=== PATIENT | male | born 1970 | race American Indian/Alaskan Native ===

== ENCOUNTER 2017-10-08 07:43 | Emergency (ER) | payer SELFPAY ==
[2017-10-08 07:51] VITALS: BP 145/86
[2017-10-08] MEDS ORDERED: FLEXERIL PO ONE (08:03)
[2017-10-08] MEDS ORDERED: TORADOL IM ONE (08:03)
--- NOTE | 2017-10-08 08:05 | Emergency Department Report ---
ED Fall HPI - General Chief Complaint: Fall Stated Complaint: FALL Time Seen by Provider: 10/08/17 07:57 Source: patient Mode of arrival: Ambulatory - History of Present Illness -: Sudden When Fall Occurred: other (Wednesday IN [facility]) Loss of Consciousness: none Prolonged Down Time?: no Symptoms Prior to Fall: none Location: back, other (BACK) Location - Extremities: Right: Shoulder Severity: mild Context: tripped/slipped Associated Symptoms: denies. denies: headache, neck pain, numbness, weakness, chest paint, shortness of breath, abdominal pain, hematuria, unable to walk, lightheaded, vertigo, confusion, other - Related Data Previous Rx's Medication Instructions Recorded Last Taken Type Cyclobenzaprine [Flexeril] 10 mg PO TID PRN #10 tablet 10/08/17 Unknown Rx methylPREDNISolone [Medrol] 4 mg PO DAILY #1 tab.ds.pk 10/08/17 Unknown Rx traMADol [Ultram] 50 mg PO Q6HR PRN #12 tablet 10/08/17 Unknown Rx Allergies Allergy/AdvReac Type Severity Reaction Status Date / Time No Known Allergies Allergy Verified 07/19/14 03:01 ED Review of Systems ROS: Stated complaint: FALL Other details as noted in HPI Comment: All other systems reviewed and negative Musculoskeletal: back pain, other (R SHOULDER) ED Past Medical Hx - Past Medical History Hx Hypertension: Yes Hx Heart Attack/AMI: No Hx Congestive Heart Failure: No Hx Diabetes: No Hx Deep Vein Thrombosis: No Hx Pulmonary Embolism: No Hx GERD: No Hx Liver Disease: Yes Hx Renal Disease: No Hx Sickle Cell Disease: No Hx Arthritis: No Hx Headaches / Migraines: No Hx Seizures: No Hx Kidney Stones: No Hx Asthma: No Hx COPD: No Hx Tuberculosis: No Hx Dementia: No Hx HIV: No Additional medical history: PNEUMONIA, Pancreatitis - Surgical History Hx Coronary Stent: No Hx Open Heart Surgery: No Hx Pacemaker: No Hx Internal Defibrillator: No Hx Cholecystectomy: No Hx Appendectomy: No Hx Breast Surgery: No - Social History Smoking Status: Never Smoker Substance Use Type: Alcohol - Medications Home Medications: Home Medications Medication Instructions Recorded Confirmed Last Taken Type Cyclobenzaprine [Flexeril] 10 mg PO TID PRN #10 tablet 10/08/17 Unknown Rx methylPREDNISolone [Medrol] 4 mg PO DAILY #1 tab.ds.pk 10/08/17 Unknown Rx traMADol [Ultram] 50 mg PO Q6HR PRN #12 tablet 10/08/17 Unknown Rx ED Physical Exam - General Limitations: No Limitations General appearance: alert - Head Head exam: Present: atraumatic - Eye Eye exam: Present: PERRL - ENT ENT exam: Present: mucous membranes moist - Neck Neck exam: Present: normal inspection - Respiratory Respiratory exam: Present: normal lung sounds bilaterally - Cardiovascular Cardiovascular Exam: Present: regular rate - GI/Abdominal GI/Abdominal exam: Present: soft - Rectal Rectal exam: Present: deferred - Extremities Exam Extremities exam: Present: normal inspection, full ROM, normal capillary refill. Absent: tenderness, pedal edema, joint swelling, calf tenderness - Back Exam Back exam: Present: normal inspection, full ROM, muscle spasm (R TRAP). Absent : tenderness, CVA tenderness (R), CVA tenderness (L), paraspinal tenderness, vertebral tenderness - Neurological Exam Neurological exam: Present: alert, oriented X3 - Psychiatric Psychiatric exam: Present: normal affect, normal mood - Skin Skin exam: Present: warm, dry, intact ED Course Vital Signs 10/08/17 07:46 Temperature 98.8 F Pulse Rate 84 Respiratory 16 Rate Blood Pressure 145/86 O2 Sat by Pulse 99 Oximetry - Reevaluation(s) Reevaluation #1: 10/08/17 09:50 MEDICATED XRAY REPORTS DEC PAIN P MEDS AMBULATORY IN ER N/V INTACT NO FOCAL NEURO DEF ED Medical Decision Making - Radiology Data Radiology results: report reviewed, image reviewed - Medical Decision Making SEE NOTE - Differential Diagnosis SP FALL RO BONE INJURY Critical care attestation.: If time is entered above; I have spent that time in minutes in the direct care of this critically ill patient, excluding procedure time. ED Disposition Clinical Impression: Fall, Back strain, Shoulder strain Disposition: DC-01 TO HOME OR SELFCARE Is pt being admited?: No Does the pt Need Aspirin: No Condition: Stable Instructions: Muscle Strain (ED) Additional Instructions: REST HEAT COMPRESSES MEDS ORDERED FOLLOW UP ORTHO IF PERSISTS Prescriptions: Cyclobenzaprine [Flexeril] 10 mg PO TID PRN #10 tablet PRN Reason: Muscle Spasm methylPREDNISolone [Medrol] 4 mg PO DAILY #1 tab.ds.pk traMADol [Ultram] 50 mg PO Q6HR PRN #12 tablet PRN Reason: Pain Referrals: PRIMARY CARE, [Primary Care Provider] - 3-5 Days CITLALY CHANDRA MD [Staff Physician] - 3-5 Days Time of Disposition: 09:51
--- NOTE | 2017-10-08 10:43 | XRay Report ---
Lumbar spine: Trauma, pain. AP and lateral views compared to comparable exam in June 2013. On the current exam there is significant narrowing of the L3-4 and L4-5 interspaces. Anterior spurring is present involving us. Margin of L4. Mild subchondral erosions are noted at the L4-5 and L5-S1 interspaces. Vertebral height and alignment are maintained and the bones are well-mineralized. The current findings at L3-L5 have markedly worsened compared to prior study. Impressions: Interval progression of degenerative L3-4 and L4-5 changes. No acute findings appreciated.
== END 2017-10-08 10:30 | disposition home or self-care (01) ==
LOC: ED 07:43
DX: S46.911A Strain of unspecified muscle, fascia and tendon at shoulder and upper arm level, right arm, initial encounter (principal); S39.012A Strain of muscle, fascia and tendon of lower back, initial encounter; I10 Essential (primary) hypertension; W01.0XXA Fall on same level from slipping, tripping and stumbling without subsequent striking against object, initial encounter; Y93.89 Activity, other specified; Y92.89 Other specified places as the place of occurrence of the external cause; Y99.8 Other external cause status
CPT/HCPCS: 72100; 96372; 99283; J1885

== ENCOUNTER 2017-10-12 16:47 | Emergency (ER) | payer SELFPAY ==
[2017-10-12 16:53] VITALS: BP 155/92
[2017-10-12] MEDS ORDERED: PERCOCET 5/325 PO ONE (20:21)
[2017-10-12] MEDS ORDERED: TORADOL IM ONE (20:21)
--- NOTE | 2017-10-12 20:39 | Emergency Department Report ---
ED Back Pain/Injury HPI - General Chief Complaint: Back Pain/Injury Stated Complaint: BACK/NECK PAIN Time Seen by Provider: 10/12/17 20:05 Source: patient Limitations: No Limitations - History of Present Illness Initial Comments: 47-year-old male with a past medical history hypertension presents to hospital with continued back pain status post slip and fall 1 week ago. Patient states he slipped and fell landing straight on his back. He was seen and evaluated here October 08 and had negative lumbar spine x-rays for acute fracture. Positive DJD was seen. Patient was prescribed Flexeril, Medrol Dosepak, and tramadol for pain but states that medications are not helping. Patient continues to have bilateral lower back pain radiates moderate to severe in intensity, described as aching, constant, worse with palpation and movement. He also has pain to the left sternocleidomastoid muscle. Patient denies paresthesias, numbness, weakness, difficulty and bleeding, or urinary incontinence. Patient expresses concern that he has a slipped disc. He has a follow-up appointment scheduled in 2 weeks. - Related Data Previous Rx's Medication Instructions Recorded Last Taken Type Cyclobenzaprine [Flexeril] 10 mg PO TID PRN #10 tablet 10/08/17 Unknown Rx methylPREDNISolone [Medrol] 4 mg PO DAILY #1 tab.ds.pk 10/08/17 Unknown Rx traMADol [Ultram] 50 mg PO Q6HR PRN #12 tablet 10/08/17 Unknown Rx HYDROcodone/APAP 5-325 [[place] 1 each PO Q6HR PRN #20 tablet 10/12/17 Unknown Rx 5/325] Ibuprofen [Motrin] 800 mg PO Q8HR PRN #30 tablet 10/12/17 Unknown Rx Allergies Allergy/AdvReac Type Severity Reaction Status Date / Time No Known Allergies Allergy Verified 10/12/17 16:49 ED Review of Systems ROS: Stated complaint: BACK/NECK PAIN Other details as noted in HPI Comment: All other systems reviewed and negative Other: Constitutional: No fevers chills Eyes: No eye pain visual changes ENT: No ear pain or throat pain Neck: as per HPI Respiratory: Denies cough wheezing shortness of breath Cardiovascular: Denies chest pain, palpitations, syncope : Denies dysuria Musculoskeletal: as per hpi Skin: Denies rash, lesions, erythema Neurologic: Denies headache, numbness, weakness Psychiatric: Denies suicidal ideation, hallucinations ED Past Medical Hx - Past Medical History Hx Hypertension: Yes Hx Heart Attack/AMI: No Hx Congestive Heart Failure: No Hx Diabetes: No Hx Deep Vein Thrombosis: No Hx Pulmonary Embolism: No Hx GERD: No Hx Liver Disease: Yes Hx Renal Disease: No Hx Sickle Cell Disease: No Hx Arthritis: No Hx Headaches / Migraines: No Hx Seizures: No Hx Kidney Stones: No Hx Asthma: No Hx COPD: No Hx Tuberculosis: No Hx Dementia: No Hx HIV: No Additional medical history: PNEUMONIA, Pancreatitis - Surgical History Past Surgical History?: No Hx Coronary Stent: No Hx Open Heart Surgery: No Hx Pacemaker: No Hx Internal Defibrillator: No Hx Cholecystectomy: No Hx Appendectomy: No Hx Breast Surgery: No - Social History Smoking Status: Never Smoker Substance Use Type: None - Medications Home Medications: Home Medications Medication Instructions Recorded Confirmed Last Taken Type Cyclobenzaprine [Flexeril] 10 mg PO TID PRN #10 tablet 10/08/17 Unknown Rx methylPREDNISolone [Medrol] 4 mg PO DAILY #1 tab.ds.pk 10/08/17 Unknown Rx traMADol [Ultram] 50 mg PO Q6HR PRN #12 tablet 10/08/17 Unknown Rx HYDROcodone/APAP 5-325 [[place] 1 each PO Q6HR PRN #20 tablet 10/12/17 Unknown Rx 5/325] Ibuprofen [Motrin] 800 mg PO Q8HR PRN #30 tablet 10/12/17 Unknown Rx ED Physical Exam - General Limitations: No Limitations - Other Other exam information: General: No limitations, patient is alert in no acute distress Head exam: Atraumatic, normocephalic Eyes exam: Normal appearance, pupils equal reactive to light, extraocular movements intact ENT: Moist mucous membrane, normal oropharynx Neck exam: Normal inspection, full range of motion, no meningismus, no midline tenderness, tenderness to base of left sternocleidomastoid Respiratory exam: Clear to auscultation bilateral, no wheezes, rales, crackles Cardiovascular: Normal rate and rhythm, normal heart sounds Abdomen: Soft, nondistended, and nontender, with normal bowel sounds, no rebound, or guarding Extremity: Full range of motion normal inspection no deformity Back: Normal Inspection, full range of motion, no midline tenderness. Bilateral tenderness at the lower lumbar and gluteal muscular areas bilaterally. Neurologic: Alert, oriented x3, cranial nerves intact, no motor or sensory deficit Psychiatric: normal affect, normal mood Skin: Warm, dry, intact ED Course Vital Signs 10/12/17 16:49 Temperature 97.4 F L Pulse Rate 74 Respiratory 16 Rate Blood Pressure 155/92 O2 Sat by Pulse 98 Oximetry - Reevaluation(s) Reevaluation #1: 10/12/17 20:39 Patient received Percocet and Toradol in the ED. He states he is not driving home ED Medical Decision Making - Medical Decision Making Patient has continued osteoskeletal back pain without midline tenderness. Recent lumbar x-ray was unremarkable for acute fracture. Patient does not have any neurologic symptoms. No further imaging indicated in the ED at this time. Outpatient follow-up will continue to be encouraged and additional pain medication would be prescribed - Differential Diagnosis fracture, contusion, sprain, herniated disc Critical Care Time: No Critical care attestation.: If time is entered above; I have spent that time in minutes in the direct care of this critically ill patient, excluding procedure time. ED Disposition Clinical Impression: Back strain Qualifiers: Encounter type: subsequent encounter Qualified Code(s): S39.012D - Strain of muscle, fascia and tendon of lower back, subsequent encounter Neck strain Qualifiers: Encounter type: subsequent encounter Qualified Code(s): S16.1XXD - Strain of muscle, fascia and tendon at neck level, subsequent encounter Disposition: - TO HOME OR SELFCARE Is pt being admited?: No Does the pt Need Aspirin: No Condition: Stable Instructions: Cervical Sprain (ED), Low Back Strain (ED) Additional Instructions: Take the medication as prescribed. Follow-up with your primary care doctor for further management. Return if symptoms worsen as indicated by your discharge instructions. Prescriptions: HYDROcodone/APAP 5-325 [[place] 5/325] 1 each PO Q6HR PRN #20 tablet PRN Reason: Pain Ibuprofen [Motrin] 800 mg PO Q8HR PRN #30 tablet PRN Reason: Pain Referrals: PRIMARY CARE, [Primary Care Provider] - 3-5 Days Time of Disposition: 20:41
== END 2017-10-12 20:50 | disposition home or self-care (01) ==
LOC: ED 16:47
DX: S39.012A Strain of muscle, fascia and tendon of lower back, initial encounter (principal); S16.1XXA Strain of muscle, fascia and tendon at neck level, initial encounter; I10 Essential (primary) hypertension; W01.0XXA Fall on same level from slipping, tripping and stumbling without subsequent striking against object, initial encounter; Y93.89 Activity, other specified; Y92.89 Other specified places as the place of occurrence of the external cause; Y99.8 Other external cause status
CPT/HCPCS: 96372; 99282; J1885

== ENCOUNTER 2017-10-26 17:23 | Emergency (ER) | payer OTHER ==
--- NOTE | 2017-10-26 17:48 | Emergency Department Report ---
Chief Complaint: Pain General Stated Complaint: FLU LIKE SYMPTOMS - HPI History of Present Illness: 47-year-old male past medical history pneumonia, pancreatitis presents with complaint of 2-3 days of worsening body aches malaise flank pain and dark colored urine - ROS Review of Systems: Generalized malaise and body aches for 2-3 days with flank pain - Exam Vital Signs: Vital Signs 10/26/17 17:31 Temperature 98.2 F Pulse Rate 79 Respiratory 18 Rate Blood Pressure 145/90 O2 Sat by Pulse 97 Oximetry Physical Exam: Heart S1-S2 lungs clear to auscultation, positive bilateral flank pain MSE screening note: Focused history and physical exam performed. Due to findings the following was ordered: Screening Assessment/Plan/Differential Dx: Flank pain, URI symptoms, possible UTI versus kidney stones 1- This initial assessment/diagnostic orders/clinical plan/ treatment(s) is/are subject to change based on pt's health status, clinical progression and re- assessment by fellow clinical providers in the ED. Further treatment and workup at subsequent clinical provers discretion. Patient/guardians urged not to elope from ED as their condition may be serious if not clinically assessed and managed. 2-urinalysis, abdominal labs, fluids while 3-patient to be seen in the main ED ED Disposition for MSE Condition: Stable
[2017-10-26 18:26] LABS: Bilirubin,Urine NEG (Negative); Blood,Urine SM (Negative); Ketones,Urine NEG (Negative); Leukocyte Esterase,Urine NEG (Negative); Nitrite,Urine NEG (Negative); Protein,Urine <15 mg/dL mg/dL (Negative); Urobilinogen,Urine < 2.0 mg/dL (<2.0)
[2017-10-26 18:30] LABS: Basophils % (Auto) 0.4 % (0.0-1.8); Eosinophils % (Auto) 0.4 % (0.0-4.3); Hematocrit 43.1 % (35.5-45.6); Hemoglobin 14.3 gm/dl (11.8-15.2); Mean Corpuscular HGB Conc 33 % (32-34); Mean Corpuscular Volume 75 fl (84-94); Platelet Count 303 K/mm3 (140-440); Red Blood Count 5.78 M/mm3 (3.65-5.03); Red Cell Distribution Width 16.7 % (13.2-15.2); White Blood Count 7.3 K/mm3 (4.5-11.0)
[2017-10-26 18:37] LABS: Mean Corpuscular Hemoglobin 25 pg (28-32)
[2017-10-26 18:40] LABS: Alanine Aminotransferase 29 units/L (7-56); Albumin 4.4 g/dL (3.9-5); Albumin/Globulin Ratio 1.4 %; Alkaline Phosphatase 83 units/L (35-129); Amylase 43 units/L (27-131); Anion Gap 19 mmol/L; BUN/Creatinine Ratio 19; Blood Urea Nitrogen 17 mg/dL (9-20); Calcium 9.4 mg/dL (8.4-10.2); Carbon Dioxide 26 mmol/L (22-30); Chloride 100.9 mmol/L (98-107); Glucose 103 mg/dL (75-100); Lipase 26 units/L (13-60); Sodium 142 mmol/L (137-145); Total Protein 7.6 g/dL (6.3-8.2)
[2017-10-26 18:54] LABS: Bilirubin,Direct < 0.2 mg/dL (0-0.2); Bilirubin,Indirect 0.1 mg/dL
[2017-10-27] MEDS ORDERED: TORADOL IM ONE (04:33)
--- NOTE | 2017-10-27 04:38 | Emergency Department Report ---
ED Back Pain/Injury HPI - General Chief Complaint: Pain General Stated Complaint: FLU LIKE SYMPTOMS Time Seen by Provider: 10/27/17 04:24 Source: patient Limitations: No Limitations - History of Present Illness Initial Comments: 47 yo male who comes in today due to bilateral flank pain. He states that it has been present times three days. He denies any falls, heavy lifting, or trauma to the back. He also states that he has no issues with nausea, vomiting , or dysuria. Past medical history positive for hypertension. MD Complaint: other (bilateral flank pain ) -: days(s) (3) Similar Symptoms Previously: No Place: home Radiation: other (left groin) Severity: moderate Severity scale (0 -10): 8 Quality: sharp, aching, other (cramping ) Consistency: constant Improves With: none Worsens With: movement Context: other (no trauma ) Associated Symptoms: denies other symptoms Treatments Prior to Arrival: other (none) - Related Data Previous Rx's Medication Instructions Recorded Last Taken Type Cyclobenzaprine [Flexeril] 10 mg PO TID PRN #10 tablet 10/08/17 Unknown Rx methylPREDNISolone [Medrol] 4 mg PO DAILY #1 tab.ds.pk 10/08/17 Unknown Rx traMADol [Ultram] 50 mg PO Q6HR PRN #12 tablet 10/08/17 Unknown Rx HYDROcodone/APAP 5-325 [[place] 1 each PO Q6HR PRN #20 tablet 10/12/17 Unknown Rx 5/325] Ibuprofen [Motrin] 800 mg PO Q8HR PRN #30 tablet 10/12/17 Unknown Rx Cyclobenzaprine [Flexeril] 10 mg PO QHS PRN #10 tablet 10/27/17 Unknown Rx Ibuprofen 800 mg PO Q8HR PRN #30 tablet 10/27/17 Unknown Rx Allergies Allergy/AdvReac Type Severity Reaction Status Date / Time No Known Allergies Allergy Verified 10/26/17 17:31 ED Review of Systems ROS: Stated complaint: FLU LIKE SYMPTOMS Other details as noted in HPI Constitutional: denies: chills, fever Eyes: denies: eye pain, eye discharge, vision change ENT: denies: ear pain, throat pain Respiratory: denies: cough, shortness of breath, wheezing Cardiovascular: denies: chest pain, palpitations Endocrine: no symptoms reported Gastrointestinal: denies: abdominal pain, nausea, diarrhea Genitourinary: denies: urgency, dysuria Musculoskeletal: as per HPI Skin: denies: rash, lesions Neurological: denies: headache, weakness, paresthesias Psychiatric: denies: anxiety, depression Hematological/Lymphatic: denies: easy bleeding, easy bruising ED Past Medical Hx - Past Medical History Hx Hypertension: Yes Hx Heart Attack/AMI: No Hx Congestive Heart Failure: No Hx Diabetes: No Hx Deep Vein Thrombosis: No Hx Pulmonary Embolism: No Hx GERD: No Hx Liver Disease: No Hx Renal Disease: No Hx Sickle Cell Disease: No Hx Arthritis: No Hx Headaches / Migraines: No Hx Seizures: No Hx Kidney Stones: No Hx Asthma: No Hx COPD: No Hx Tuberculosis: No Hx Dementia: No Hx HIV: No Additional medical history: PNEUMONIA, Pancreatitis, Degenerative Disc Disease - Surgical History Past Surgical History?: No Hx Coronary Stent: No Hx Open Heart Surgery: No Hx Pacemaker: No Hx Internal Defibrillator: No Hx Cholecystectomy: No Hx Appendectomy: No Hx Breast Surgery: No - Social History Smoking Status: Never Smoker Substance Use Type: None - Medications Home Medications: Home Medications Medication Instructions Recorded Confirmed Last Taken Type Cyclobenzaprine [Flexeril] 10 mg PO TID PRN #10 tablet 10/08/17 Unknown Rx methylPREDNISolone [Medrol] 4 mg PO DAILY #1 tab.ds.pk 10/08/17 Unknown Rx traMADol [Ultram] 50 mg PO Q6HR PRN #12 tablet 10/08/17 Unknown Rx HYDROcodone/APAP 5-325 [[place] 1 each PO Q6HR PRN #20 tablet 10/12/17 Unknown Rx 5/325] Ibuprofen [Motrin] 800 mg PO Q8HR PRN #30 tablet 10/12/17 Unknown Rx Cyclobenzaprine [Flexeril] 10 mg PO QHS PRN #10 tablet 10/27/17 Unknown Rx Ibuprofen 800 mg PO Q8HR PRN #30 tablet 10/27/17 Unknown Rx ED Physical Exam - General Limitations: No Limitations General appearance: alert, in no apparent distress - Head Head exam: Present: atraumatic, normocephalic - Eye Eye exam: Present: normal appearance - ENT ENT exam: Present: mucous membranes moist - Neck Neck exam: Present: normal inspection - Respiratory Respiratory exam: Present: normal lung sounds bilaterally. Absent: respiratory distress - Cardiovascular Cardiovascular Exam: Present: regular rate, normal rhythm. Absent: systolic murmur, diastolic murmur, rubs, gallop - GI/Abdominal GI/Abdominal exam: Present: tenderness (left upper/lower quadrant ) - Extremities Exam Extremities exam: Present: normal inspection - Back Exam Back exam: Present: CVA tenderness (R), CVA tenderness (L) - Neurological Exam Neurological exam: Present: alert, oriented X3 - Psychiatric Psychiatric exam: Present: normal affect, normal mood - Skin Skin exam: Present: warm, dry, intact, normal color. Absent: rash ED Course Vital Signs 10/26/17 10/27/17 10/27/17 17:31 03:05 04:50 Temperature 98.2 F 97.6 F Pulse Rate 79 75 Respiratory 18 16 16 Rate Blood Pressure 145/90 Blood Pressure 156/105 [Right] O2 Sat by Pulse 97 97 Oximetry ED Medical Decision Making - Lab Data Result diagrams: 10/26/17 17:54 10/26/17 17:54 - Radiology Data Radiology results: report reviewed CT abdomen/pelvis-negative. - Medical Decision Making Lumbosacral musculoskeletal pain Muscle spasms-bilateral lower back - Differential Diagnosis Lumbosacral musculoskeletal pain, muscle spasms-bilateral lower back Critical care attestation.: If time is entered above; I have spent that time in minutes in the direct care of this critically ill patient, excluding procedure time. ED Disposition Clinical Impression: Lumbosacral strain, Muscle spasm of back Disposition: DC-01 TO HOME OR SELFCARE Is pt being admited?: No Does the pt Need Aspirin: No Condition: Stable Instructions: Muscle Spasm (ED), Low Back Strain (ED) Additional Instructions: Take medicines as prescribed. Follow up with your provider if not any better upon completion of medications. No heavy lifting. May resume your regularly scheduled activities. Prescriptions: Cyclobenzaprine [Flexeril] 10 mg PO QHS PRN #10 tablet PRN Reason: Muscle Spasm Ibuprofen 800 mg PO Q8HR PRN #30 tablet PRN Reason: Pain Referrals: PRIMARY CARE, [Primary Care Provider] - 3-5 Days Time of Disposition: 05:29
--- NOTE | 2017-10-27 05:13 | Cat Scan Report ---
FINAL REPORT EXAM: CT ABDOMEN PELVIS WO CON HISTORY: bilateral flank pain TECHNIQUE: CT images obtained through the Abdomen and Pelvis without contrast. Transaxial,coronal and sagittal reformats are provided. PRIORS: 11/04/2015 FINDINGS: Imaged intrathoracic contents are remarkable for coronary artery disease. Kidneys are normal in size, axis and position. Mild bilateral perinephric senescent stranding/scarring is similar to prior. No hydronephrosis or nephrolithiasis. The ureters are normal in course and caliber. No stones are seen within the urinary bladder. The liver, gallbladder, pancreas, spleen, and adrenal glands demonstrate a normal noncontrast appearance. Hollow enteric organs are normal in course and caliber. Appendix is normal. No intra-abdominal free air/fluid or lymphadenopathy. Aorta is normal in course and caliber. Superficial soft tissues are unremarkable. No acute or aggressive appearing skeletal findings. IMPRESSION: No CT evidence of obstructive urolithiasis or other acute abdominal or pelvic findings.
[2017-10-27 05:57] VITALS: BP 152/100
== END 2017-10-27 05:58 | disposition home or self-care (01) ==
LOC: ED 17:23
DX: S39.012A Strain of muscle, fascia and tendon of lower back, initial encounter (principal); I10 Essential (primary) hypertension; X58.XXXA Exposure to other specified factors, initial encounter; Y93.89 Activity, other specified; Y99.8 Other external cause status; Y92.009 Unspecified place in unspecified non-institutional (private) residence as the place of occurrence of the external cause
CPT/HCPCS: 36415; 74176; 80048; 80074; 81001; 82150; 82550; 83690; 85025; 87086; 87400; 96372; 99284; J1885

== ENCOUNTER 2018-01-09 15:51 | Emergency (ER) | payer SELFPAY ==
[2018-01-09 16:21] VITALS: BP 121/79
[2018-01-09] MEDS ORDERED: ASPIRIN PO ONE (16:21)
[2018-01-09 16:41] LABS: Basophils % (Auto) 0.3 % (0.0-1.8); Eosinophils % (Auto) 0.4 % (0.0-4.3); Hematocrit 42.5 % (35.5-45.6); Hemoglobin 13.9 gm/dl (11.8-15.2); Lymphocytes # (Auto) 1.9 K/mm3 (1.2-5.4); Lymphocytes % (Auto) 21.5 % (13.4-35.0); Mean Corpuscular HGB Conc 33 % (32-34); Mean Corpuscular Volume 75 fl (84-94); Monocytes # (Auto) 0.9 K/mm3 (0.0-0.8); Monocytes % (Auto) 9.8 % (0.0-7.3); Platelet Count 293 K/mm3 (140-440); Red Blood Count 5.63 M/mm3 (3.65-5.03); Red Cell Distribution Width 15.8 % (13.2-15.2)
[2018-01-09 16:43] LABS: BUN/Creatinine Ratio 16; Blood Urea Nitrogen 18 mg/dL (9-20); Calcium 9.2 mg/dL (8.4-10.2); Hemolysis Index 17
[2018-01-09 16:44] LABS: Mean Corpuscular Hemoglobin 25 pg (28-32)
== END 2018-01-09 17:00 | disposition left against medical advice (07) ==
LOC: ED 15:51
DX: R07.9 Chest pain, unspecified (principal); Z53.21 Procedure and treatment not carried out due to patient leaving prior to being seen by health care provider
CPT/HCPCS: 36415; 80048; 84484; 85025; 93005; 93010

== ENCOUNTER 2018-01-20 17:24 | Emergency (ER) | payer OTHER ==
[2018-01-20 17:39] VITALS: BP 142/113
--- NOTE | 2018-01-20 19:47 | Emergency Department Report ---
Chief Complaint: Recheck/Abnormal Lab/Rx Stated Complaint: MED REFILL Time Seen by Provider: 01/20/18 19:39 - HPI History of Present Illness: He is a 47-year-old [place] male who is coming in for medication refill. Patient states he supposed to have surgery on the shoulder so his orthopedic doctor stated he needed to come to the emergency department to get back on his blood pressure medicines. Patient has no chest pain shortness of breath headache nausea vomiting decreased urination. Patient states that he doesn't otherwise orthopedic doctor wouldn't just write his prescription for blood pressure medicines but he doesn't have a primary care physician at this time. - ROS Review of Systems: Review of systems is negative except for those elements noted in HPI. - Exam Vital Signs: Vital Signs 01/20/18 17:35 Temperature 98.6 F Pulse Rate 104 H Respiratory 16 Rate Blood Pressure 142/113 O2 Sat by Pulse 98 Oximetry Physical Exam: Shouldn't is alert and oriented 3 in no acute distress. The patient is breathing is unlabored. Cardiovascular patient has a S1-S2 no murmurs gallops or rubs. Abdomen soft nontender. MSE screening note: Focused history and physical exam performed. Due to findings the following was ordered: ED Disposition for MSE Clinical Impression: Encounter for medication refill Disposition: Z-07 MED SCREENING EXAM-LEFT Is pt being admited?: No Does the pt Need Aspirin: No Condition: Stable Referrals: [facility] [Outside] - 3-5 Days
== END 2018-01-20 20:22 | disposition left against medical advice (07) ==
LOC: ED 17:24
DX: Z76.0 Encounter for issue of repeat prescription (principal); Z53.21 Procedure and treatment not carried out due to patient leaving prior to being seen by health care provider

== ENCOUNTER 2018-02-07 17:34 | Emergency (ER) | payer SELFPAY ==
[2018-02-07 18:10] VITALS: BP 169/111
[2018-02-07 18:33] LABS: Basophils % (Auto) 0.5 % (0.0-1.8); Eosinophils % (Auto) 0.8 % (0.0-4.3); Hematocrit 42.9 % (35.5-45.6); Hemoglobin 14.1 gm/dl (11.8-15.2); Lymphocytes # (Auto) 1.7 K/mm3 (1.2-5.4); Lymphocytes % (Auto) 26.5 % (13.4-35.0); Mean Corpuscular HGB Conc 33 % (32-34); Mean Corpuscular Volume 77 fl (84-94); Monocytes # (Auto) 0.8 K/mm3 (0.0-0.8); Monocytes % (Auto) 12.4 % (0.0-7.3); Platelet Count 267 K/mm3 (140-440); Red Blood Count 5.58 M/mm3 (3.65-5.03)
[2018-02-07 18:35] LABS: Mean Corpuscular Hemoglobin 25 pg (28-32)
[2018-02-07 18:46] LABS: BUN/Creatinine Ratio 13; Blood Urea Nitrogen 12 mg/dL (9-20); Calcium 8.5 mg/dL (8.4-10.2); Hemolysis Index 12
== END 2018-02-07 18:18 | disposition left against medical advice (07) ==
LOC: ED 17:34
DX: R09.89 Other specified symptoms and signs involving the circulatory and respiratory systems (principal); Z53.21 Procedure and treatment not carried out due to patient leaving prior to being seen by health care provider
CPT/HCPCS: 36415; 80048; 84484; 85025; 93005; 93010